=== PATIENT | male | born 1965 | race African-American/Black ===

== ENCOUNTER 2017-05-17 01:55 | Emergency (ER) | payer BC ==
[~2017-05-17] VITALS: Ht 175.3 cm; Wt 108.9 kg
--- NOTE | ~2017-05-17 | EKG ---
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
[~2017-05-17 01:55] MED LIST: AMLODIPINE-BEN1 EAC3 PO; ASPIR 8181 MG PO; BENADRYL25 MG PO; EPIPEN 2-P0.3 MG/0.3 IM; FISH OIL 1,001000 M2 PO; IBUPROFEN 800800 M1 PO; NORVASC10 MG PO; NORVASC5 MG PO; PEPCID40 MG PO; PREDNISONE 20 M20 MG PO; UNICOMPLEX M TA1 TA1 PO; VITAMINC500 PO
[2017-05-17] MEDS ORDERED: AMLODIPINE BESY10 MG PO (02:05)
[2017-05-17] MEDS ORDERED: GUAIFEN-CODEINE10 ML PO (03:16)
[2017-05-17] MEDS ORDERED: ZPAK PO (03:16)
[2017-05-17] MEDS ORDERED: VENTOLIN HFA 1818 GM INH (03:16)
== END 2017-05-17 04:07 | disposition home or self-care (01) ==
LOC: ER 01:55
DX: J18.8 Other pneumonia, unspecified organism (principal); I10 Essential (primary) hypertension; Z91.013 Allergy to seafood; Z88.8 Allergy status to other drugs, medicaments and biological substances; Z87.891 Personal history of nicotine dependence

== ENCOUNTER 2017-10-09 14:12 | Emergency (ER) | payer BC ==
[~2017-10-09 14:12] MED LIST changes: +AMLODIPINE BESY10 MG PO; +GUAIFEN-CODEINE10 ML PO; +VENTOLIN HFA 1818 GM INH; +ZPAK PO
[2017-10-09] MEDS ORDERED: NORCO 5-325 TA1 EACH PO (15:37)
[2017-10-09 16:38] VITALS: BP 135/74
== END 2017-10-09 16:42 | disposition home or self-care (01) ==
LOC: ER 14:12
DX: S86.812A Strain of other muscle(s) and tendon(s) at lower leg level, left leg, initial encounter (principal); I10 Essential (primary) hypertension; Z87.891 Personal history of nicotine dependence; Z88.8 Allergy status to other drugs, medicaments and biological substances; Z91.013 Allergy to seafood; X58.XXXA Exposure to other specified factors, initial encounter; Y93.89 Activity, other specified; Y92.89 Other specified places as the place of occurrence of the external cause; Y99.8 Other external cause status

== ENCOUNTER → 2017-10-18 | Outpatient (CLI) | payer BC ==
[~2017-10-18] MED LIST changes: +NORCO 5-325 TA1 EACH PO
== END ==
LOC: MRI 12:08
DX: S83.242A Other tear of medial meniscus, current injury, left knee, initial encounter (principal); M17.12 Unilateral primary osteoarthritis, left knee; X58.XXXA Exposure to other specified factors, initial encounter; Y93.89 Activity, other specified; Y92.89 Other specified places as the place of occurrence of the external cause; Y99.8 Other external cause status